=== PATIENT | male | born 1980 | race Caucasian/White ===

== ENCOUNTER 2023-08-27 14:59 | Emergency (ER) | payer BC, SELFPAY ==
[2023-08-27 15:04] VITALS: BP 165/114
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
[2023-08-27] MEDS: NSS 1000 IV (15:36)
[2023-08-27 16:12] LABS: ALT (SGPT) 72 U/L (0-50); AST (SGOT) 94 U/L (17-59); Albumin 4.9 g/dl (3.5-5.0); Alkaline Phosphatase 94 U/L (38-126); Blood Urea Nitrogen 6 mg/dl (9-20); Calcium 9.2 mg/dl (8.4-10.2); Carbon Dioxide 32 mmol/L (22-30); Chloride 96 mmol/L (98-107); Glucose 99 mg/dl (70-99); Lipase 156 U/L (23-300); Potassium 2.8 mmol/L (3.5-5.1); Sodium 139 mmol/L (135-145); Total Bilirubin 1.3 mg/dl (0.2-1.3); eGFR > 60.00
[2023-08-27 16:34] VITALS: BP 160/79
[2023-08-27 16:51] LABS: % Eosinophils 1.5 % (0-6); % Immature Granulocytes 0.4 % (0-0.5); % Lymphocytes 26.6 % (20.5-51.1); % Monocytes 8.8 % (1.7-9.3); % Neutrophils 61.7 % (42.2-75.2); Absolute Basophils 0.1 10^3/uL (0-0.2); Absolute Eosinophils 0.1 10^3/uL (0-0.7); Absolute Lymphocytes 1.4 10^3/uL (1.2-3.4); Absolute Monocytes 0.5 10^3/uL (0.1-0.6); Absolute Neutrophils 3.2 10^3/uL (1.4-6.5); Hematocrit 43.8 % (39.0-52.0); Hemoglobin 16.9 g/dL (13.0-18.0); Mean Corp Hgb Conc. 38.6 g/dL (33.0-37.0); Mean Corpuscular Hgb 35.1 pg (27.0-31.0); Mean Corpuscular Volume 91.1 fL (80.0-94.0); Mean Platelet Volume 10.6 fL (7.4-10.4); Nucleated Red Blood Cells % 0 % (-); Platelet Count 184 10^3/uL (130-400); Red Blood Cell Count 4.81 10^6/uL (4.70-6.10); Red Cell Dist. Width 12.9 % (11.5-14.5); White Blood Cell Count 5.2 10^3/uL (4.8-10.8)
[2023-08-27] MEDS: KCL 40 MEQ PO (16:52)
[2023-08-27] MEDS: KCL 160 MEQ IV (17:24)
[2023-08-27] MEDS: NSS 500 IV (17:28)
[2023-08-27 20:21] LABS: Potassium 2.9 mmol/L (3.5-5.1)
[2023-08-27 20:49] LABS: Magnesium 1.2 mg/dl (1.6-2.3)
[2023-08-27] MEDS: MAGNESIUM SULFATE 50 IV (21:37)
[2023-08-27] MEDS: XANAX 1 MG PO (21:37)
[2023-08-27] MEDS: KCL 260 MEQ IV (22:05)
[2023-08-28 00:47] VITALS: BP 155/93
[2023-08-28] MEDS: NSS IV (00:50)
== END 2023-08-28 00:49 | disposition home or self-care (01) ==
LOC: EMR 14:59
PROVIDERS: Registered Nurse; EMERGENCY PHYSICIAN Emergency Medicine
DX: S20.20XA Contusion of thorax, unspecified, initial encounter (principal); E87.6 Hypokalemia; E61.2 Magnesium deficiency; Y93.55 Activity, bike riding; K21.9 Gastro-esophageal reflux disease without esophagitis; F90.9 Attention-deficit hyperactivity disorder, unspecified type; Z79.899 Other long term (current) drug therapy
CPT/HCPCS: 99284; 96365; 70450; 74177; 80053; 83690; 83735; 84132; 85025; 93005; Q9967

== ENCOUNTER 2024-07-12 14:18 | Emergency (ER) | payer BC, SELFPAY ==
[2024-07-12 14:23] VITALS: BP 153/95
[2024-07-12 14:59] LABS: ALT (SGPT) 70 U/L (0-50); AST (SGOT) 145 U/L (17-59); Alkaline Phosphatase 165 U/L (38-126); Blood Urea Nitrogen 8 mg/dl (9-20); Calcium 8.9 mg/dl (8.4-10.2); Carbon Dioxide 31 mmol/L (22-30); Chloride 99 mmol/L (98-107); Glucose 124 mg/dl (70-99); Potassium 3.7 mmol/L (3.5-5.1); Sodium 145 mmol/L (135-145); Total Bilirubin 1.9 mg/dl (0.2-1.3); Total Protein 8.4 g/dl (6.3-8.2); eGFR > 60.00
[2024-07-12 15:57] LABS: Hematocrit 41.7 % (39.0-52.0); Hemoglobin 15.6 g/dL (13.0-18.0); Mean Corp Hgb Conc. 37.4 g/dL (33.0-37.0); Mean Corpuscular Hgb 35.2 pg (27.0-31.0); Mean Corpuscular Volume 94.1 fL (80.0-94.0); Mean Platelet Volume 10.1 fL (7.4-10.4); Platelet Count 169 10^3/uL (130-400); Red Blood Cell Count 4.43 10^6/uL (4.70-6.10); Red Cell Dist. Width 12.9 % (11.5-14.5); White Blood Cell Count 4.6 10^3/uL (4.8-10.8)
[2024-07-12 17:54] VITALS: BP 140/101
[2024-07-12 17:58] LABS: Eosinophils 6 % (0-6); Lymphocytes 60 % (20-51); Monocytes 5 % (2-9); Segmented Neutrophils 25 % (42-75)
[2024-07-12 17:59] LABS: Atypical Lymphocytes 4 %; Normal RBC Morphology No; Platelets Checked Yes; Total Cells Counted 100
[2024-07-12 18:00] LABS: Microcytosis 1+; Rouleaux 1+
[2024-07-12 18:12] VITALS: BMI 20.9
[2024-07-12 18:13] VITALS: BP 153/91
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
[2024-07-12 19:01] LABS: Alcohol 306 mg/dl
== END 2024-07-12 18:45 | disposition home or self-care (01) ==
LOC: EMR 14:18
PROVIDERS: Emergency Medicine; EMERGENCY PHYSICIAN Emergency Medicine; FAMILY PHYSICIAN Family Medicine
DX: S06.0XAA Concussion with loss of consciousness status unknown, initial encounter (principal); W22.8XXA Striking against or struck by other objects, initial encounter; R79.89 Other specified abnormal findings of blood chemistry
CPT/HCPCS: 99284; 70450; 80053; 82077; 85025